=== PATIENT | female | born 1940 | race Hispanic/Latino ===

== ENCOUNTER → 2018-08-08 | Outpatient (CLI) | payer OTHER, MEDICARE | END | disposition home or self-care (01) | LOC: SHCH 13:37 | PROVIDERS: ATTEND Internal Medicine Cardiovascular Disease | DX: I48.0 Paroxysmal atrial fibrillation (principal) | CPT/HCPCS: 93306 ==

== ENCOUNTER 2019-07-03 05:53 | Emergency (ER) | payer OTHER, MEDICARE ==
[2019-07-03 06:23] LABS: BASOPHILS % (AUTO) 0.4 % (0.0-5.0); EOSINOPHILS % (AUTO) 1.5 % (0.0-8.0); HEMATOCRIT 39.8 % (36-48); MEAN CORPUSCULAR HEMOGLOBIN 29.3 pg (27.0-33.0); MEAN CORPUSCULAR HGB CONC 32.7 g/dL (32.0-36.0); MEAN CORPUSCULAR VOLUME 89.8 fL (79-99); MONOCYTES % (AUTO) 7.2 % (3.0-13.0); NEUTROPHILS % (AUTO) 67.1 % (40.0-77.0); PLATELET COUNT (AUTO) 594 K/uL (130-400); RED BLOOD CELL COUNT(AUTO) 4.43 MIL/uL (4.00-5.50); RED CELL DISTRIBUTION WIDTH 12.6 % (11.0-15.5); WHITE BLOOD COUNT (AUTO) 11.5 K/uL (4.8-10.8)
[2019-07-03 06:23] LABS: APPEARANCE,URINE CLEAR (CLEAR); BILIRUBIN,URINE SMALL (NEGATIVE); COLOR,URINE YELLOW (YELLOW); GLUCOSE, URINE (UA) NEGATIVE (NEGATIVE); KETONES,URINE NEGATIVE (NEGATIVE); LEUKOCYTE ESTERASE ,URINE MODERATE (NEGATIVE); NITRATE,URINE NEGATIVE (NEGATIVE); OCCULT BLOOD,URINE MODERATE (NEGATIVE); PROTEIN,URINE TRACE mg/dL (NEGATIVE); UROBILINOGEN,URINE 0.2 mg/dL (0.2-1.0)
[2019-07-03 06:36] LABS: INR 0.92 (0.85-1.15); PARTIAL THROMBOPLASTIN TIME 25.8 SEC (26.3-35.5)
[2019-07-03 06:39] LABS: POTASSIUM 3.7 mmol/L (3.5-5.1)
[2019-07-03 06:45] LABS: ALBUMIN 3.2 g/dL (3.5-5.0); BILIRUBIN,TOTAL 0.4 mg/dL (0.2-1.0); TOTAL PROTEIN, SERUM 8.2 g/dL (6.0-8.3)
[2019-07-03] MEDS ORDERED: CEFTRIAXONE SODIUM 1 GM ONE (06:54)
[2019-07-03] MEDS ORDERED: SODIUM CHLORIDE 0.9% 1000ML 1,000 ML IV ONE (06:54)
[2019-07-03] MEDS ORDERED: PHENAZOPYRIDINE HCL 200 MG TABLET ONE (06:54)
[2019-07-03 06:59] LABS: RBC,URINE 0-1 /HPF (0-1)
[2019-07-03 07:00] LABS: BACTERIA,URINE Moderate /HPF (None Seen)
[2019-07-03 07:01] LABS: MUCUS,URINE Few LPF (None Seen); SQUAMOUS EPITHELIAL CELL,UR Few /HPF (0-2)
== END 2019-07-03 07:53 | disposition home or self-care (01) ==
LOC: EDH 05:53
DX: N39.0 Urinary tract infection, site not specified (principal); I10 Essential (primary) hypertension; E78.00 Pure hypercholesterolemia, unspecified; R79.1 Abnormal coagulation profile; Z90.49 Acquired absence of other specified parts of digestive tract; Z79.899 Other long term (current) drug therapy
CPT/HCPCS: 36415; 80053; 81001; 85025; 85610; 85730; 87077; 87088; 87186; 96374; 99283; J0696; J7030

== ENCOUNTER → 2020-07-21 | Outpatient (CLI) | payer OTHER, MEDICARE | END | disposition home or self-care (01) | LOC: SHCH 14:21 | PROVIDERS: ATTEND Internal Medicine Cardiovascular Disease | DX: I34.0 Nonrheumatic mitral (valve) insufficiency (principal); R55 Syncope and collapse | CPT/HCPCS: 93306; 93356 ==

== ENCOUNTER 2021-10-19 05:58 | Observation (INO) | payer OTHER, MEDICARE ==
[2021-10-16 09:20] LABS: BASOPHILS % (AUTO) 0.8 % (0.0-5.0); HEMATOCRIT 43.3 % (36-48); LYMPHOCYTES % (AUTO) 22.5 % (21.0-51.0); MEAN CORPUSCULAR HEMOGLOBIN 29.5 pg (27.0-33.0); MEAN CORPUSCULAR HGB CONC 32.1 g/dL (32.0-36.0); MEAN CORPUSCULAR VOLUME 91.9 fL (79-99); NEUTROPHILS % (AUTO) 67.4 % (40.0-77.0); PLATELET COUNT (AUTO) 330 K/uL (130-400); RED BLOOD CELL COUNT(AUTO) 4.71 MIL/uL (4.00-5.50); WHITE BLOOD COUNT (AUTO) 9.3 K/uL (4.8-10.8)
[2021-10-16 09:30] LABS: POTASSIUM 4.5 mmol/L (3.5-5.1)
[2021-10-16 09:32] LABS: INR 0.93 (0.85-1.15); PROTHROMBIN TIME 9.8 SEC (9.6-11.6)
[2021-10-16 09:44] VITALS: BP 168/68
[2021-10-16 10:26] LABS: APPEARANCE,URINE CLEAR (CLEAR); BILIRUBIN,URINE NEGATIVE (NEGATIVE); COLOR,URINE YELLOW (YELLOW); GLUCOSE, URINE (UA) NEGATIVE (NEGATIVE); KETONES,URINE NEGATIVE (NEGATIVE); LEUKOCYTE ESTERASE ,URINE MODERATE (NEGATIVE); NITRATE,URINE NEGATIVE (NEGATIVE); OCCULT BLOOD,URINE NEGATIVE (NEGATIVE); PROTEIN,URINE NEGATIVE (NEGATIVE); UROBILINOGEN,URINE 0.2 mg/dL (0.2-1.0)
[2021-10-16 10:46] LABS: BACTERIA,URINE Few /HPF (None Seen); SQUAMOUS EPITHELIAL CELL,UR Rare /HPF (0-2); WBC,URINE None Seen /HPF (0-1)
[2021-10-19] VITALS (23 sets, daily range): BP systolic 128–187; BP diastolic 50–91
[~2021-10-19] VITALS: Ht 162.6 cm; Wt 74.5 kg
[2021-10-19] MEDS: CEFAZOLIN SODIUM 2 GM VIAL IV SCH (05:00)
[~2021-10-19 05:58] MED LIST: ALEN70TA80 PO; AMLO-257 PO; ATOR20TA65 PO; CEFAZOLIN SODIUM 2 GM VIAL IV ONE; METO-408 PO; RIVA20TA PO; TRANEXAMIC ACID 1000MG/10ML IV ONE; TYLENOL ARTHRITIS PO
[2021-10-19] MEDS ORDERED: LACTATED RINGERS 1000ML 1,000 ML IV ONE (07:55)
[2021-10-19] MEDS ORDERED: CEFAZOLIN SODIUM 1 GM VIAL ONE ×2 (07:55→10:53)
[2021-10-19] MEDS ORDERED: 0.9%NACL 1000ML 0 ML IV ONE (07:55)
[2021-10-19] MEDS ORDERED: MIDAZOLAM HCL 1 MG/ML 2ML VIAL ONE ×2 (10:14→10:20)
[2021-10-19] MEDS ORDERED: LIDOCAINE PF 100MG/5ML (2%) SYRINGE 5ML ONE (10:19)
[2021-10-19] MEDS ORDERED: ROCURONIUM 10MG/1ML SYR 10 MG/ML ML ONE ×2 (10:20→11:10)
[2021-10-19] MEDS ORDERED: FENTANYL CITRATE PF 50 MCG/1 ML 2ML VIAL ONE ×2 (10:20→13:11)
[2021-10-19] MEDS ORDERED: PROPOFOL 10 MG/ML 20ML VIAL IV ONE (10:20)
[2021-10-19] MEDS ORDERED: ONDANSETRON 4MG INJ ONE (10:20)
[2021-10-19] MEDS ORDERED: ROPIVACAINE 0.5% 5MG/ML 30ML IJ ONE (10:21)
[2021-10-19] MEDS ORDERED: DEXAMETHASONE SOD PHOSPHATE 10MG/ML 1ML VIAL ONE (10:22)
[2021-10-19] MEDS ORDERED: CEFAZOLIN SODIUM 2 GM VIAL IV ONE (10:30)
[2021-10-19] MEDS ORDERED: PHENYLEPHRINE HCL 10 MG/ML 1ML VIAL IV ONE (10:43)
[2021-10-19] MEDS ORDERED: EPHEDRINE SULFATE 50 MG/ML AMPULE ONE (11:06)
[2021-10-19] MEDS ORDERED: CEFAZOLIN SODIUM 1 GM VIAL IRRIG ONE (11:12)
[2021-10-19] MEDS ORDERED: CALCIUM CARB 500MG PO PRN (13:00)
[2021-10-19] MEDS: ACETAMINOPHEN 500 MG TABLET PO SCH ×2 (13:00→21:05)
[2021-10-19] MEDS ORDERED: LIDOCAINE HCL-MPF 1% 2ML VIAL IV PRN (13:00)
[2021-10-19] MEDS ORDERED: KCL 20 MEQ ERTAB PO PRN (13:00)
[2021-10-19] MEDS ORDERED: OXYCODONE HCL 5 MG TAB PO PRN (13:00)
[2021-10-19] MEDS ORDERED: TRAMADOL HCL 50 MG TABLET PO PRN (13:00)
[2021-10-19] MEDS: 0.9%NACL 1000ML 1,000 ML IV SCH ×2 (13:00→23:00)
[2021-10-19] MEDS ORDERED: DiphenhydrAMINE HCL 50 MG/ML VIAL IVP PRN (13:00)
[2021-10-19] MEDS ORDERED: POTASSIUM CHLORIDE 20MEQ/100ML 100 ML IV PRN (13:00)
[2021-10-19] MEDS ORDERED: ONDANSETRON 4MG INJ IVP PRN (13:00)
[2021-10-19] MEDS ORDERED: FERROUS FUMARATE 324 MG TABLET PO PRN (13:00)
[2021-10-19] MEDS ORDERED: KETOROLAC 15MG/ML VIAL (15MG/ML) IV PRN (13:00)
[2021-10-19] MEDS ORDERED: TRANEXAMIC ACID 1000MG/10ML ONE (13:04)
[2021-10-19] MEDS ORDERED: GLYCOPYRROLATE 1 MG/5 ML SYRINGE ONE (13:10)
[2021-10-19] MEDS ORDERED: NEOSTIGMINE 5MG/5ML SYR IV ONE (13:10)
[2021-10-19] MEDS ORDERED: MORPHINE 2 MG SYG ONE ×3 (13:32→13:47)
[2021-10-19] MEDS: PREGABALIN 25 MG CAP PO SCH (21:03)
[2021-10-19] MEDS: FAMOTIDINE 20MG TAB PO SCH (21:05)
[2021-10-19] MEDS: CELECOXIB 200 MG CAP PO SCH (21:05)
[2021-10-19] MEDS: NITROFURANTOIN MONOHYD/M-CRYST 100 MG CAPSULE PO SCH (21:06)
[2021-10-19] MEDS: PHENAZOPYRIDINE HCL 200 MG TABLET PO SCH (21:07)
[2021-10-19] MEDS: METOPROLOL SUCCINATE 25 MG TAB.SR.24H PO SCH (21:08)
[2021-10-19] MEDS: CEFAZOLIN SODIUM 1 GM VIAL IVP SCH (21:08)
[2021-10-20 00:23] VITALS: BP 151/72
[2021-10-20] MEDS: 0.9%NACL 1000ML 1,000 ML IV SCH (02:09)
[2021-10-20] MEDS: PHENAZOPYRIDINE HCL 200 MG TABLET PO SCH ×3 (02:30→17:47)
[2021-10-20] MEDS: CEFAZOLIN SODIUM 1 GM VIAL IVP SCH (02:37)
[2021-10-20] MEDS: CEFAZOLIN SODIUM 2 GM VIAL IV SCH (04:02)
[2021-10-20] MEDS: ACETAMINOPHEN 500 MG TABLET PO SCH ×3 (04:22→23:21)
[2021-10-20 04:23] VITALS: BP 137/60
[2021-10-20] MEDS: OXYCODONE HCL 5 MG TAB PO PRN ×3 (04:27→14:06)
[2021-10-20 05:16] LABS: HEMATOCRIT 31.7 % (36-48); MEAN CORPUSCULAR HEMOGLOBIN 29.9 pg (27.0-33.0); MEAN CORPUSCULAR HGB CONC 33.8 g/dL (32.0-36.0); MEAN CORPUSCULAR VOLUME 88.5 fL (79-99); RED BLOOD CELL COUNT(AUTO) 3.58 MIL/uL (4.00-5.50); RED CELL DISTRIBUTION WIDTH 12.7 % (11.0-15.5); WHITE BLOOD COUNT (AUTO) 13.3 K/uL (4.8-10.8)
[2021-10-20 05:28] LABS: CREATININE 0.7 mg/dL (0.5-1.5); POTASSIUM 3.7 mmol/L (3.5-5.1)
[2021-10-20 08:00] VITALS: BP 131/53
[2021-10-20] MEDS: AMLODIPINE 5 MG TAB PO SCH (09:00)
[2021-10-20] MEDS ORDERED: RIVAROXABAN 20 MG TABLET PO SCH (09:00)
[2021-10-20] MEDS: METOPROLOL SUCCINATE 25 MG TAB.SR.24H PO SCH ×2 (09:00→23:20)
[2021-10-20] MEDS: PREGABALIN 25 MG CAP PO SCH ×2 (10:55→23:20)
[2021-10-20] MEDS: FAMOTIDINE 20MG TAB PO SCH ×2 (10:55→23:28)
[2021-10-20] MEDS: POLYETHYLENE GLYCOL 3350 17 GM POWD.PACK PO SCH (10:55)
[2021-10-20] MEDS: CELECOXIB 200 MG CAP PO SCH ×2 (10:55→23:20)
[2021-10-20] MEDS: RIVAROXABAN 20 MG TABLET PO SCH (10:55)
[2021-10-20] MEDS: ATORVASTATIN 20 MG TABLET PO SCH (10:55)
[2021-10-20] MEDS: NITROFURANTOIN MONOHYD/M-CRYST 100 MG CAPSULE PO SCH ×2 (10:56→23:19)
[2021-10-20 12:00] VITALS: BP 119/50
[2021-10-20 16:00] VITALS: BP 116/49
[2021-10-20 20:40] VITALS: BP 129/53
[2021-10-21 01:03] VITALS: BP 117/50
[2021-10-21] MEDS: PHENAZOPYRIDINE HCL 200 MG TABLET PO SCH ×3 (03:08→17:29)
[2021-10-21 04:24] VITALS: BP 127/66
[2021-10-21] MEDS: CEFAZOLIN SODIUM 2 GM VIAL IV SCH (05:00)
[2021-10-21] MEDS: ACETAMINOPHEN 500 MG TABLET PO SCH ×2 (06:43→13:14)
[2021-10-21 08:00] VITALS: BP 115/48
[2021-10-21] MEDS: AMLODIPINE 5 MG TAB PO SCH ×2 (09:00→09:06)
[2021-10-21] MEDS: METOPROLOL SUCCINATE 25 MG TAB.SR.24H PO SCH ×2 (09:00→09:06)
[2021-10-21] MEDS: PREGABALIN 25 MG CAP PO SCH (09:06)
[2021-10-21] MEDS: RIVAROXABAN 20 MG TABLET PO SCH (09:06)
[2021-10-21] MEDS: POLYETHYLENE GLYCOL 3350 17 GM POWD.PACK PO SCH (09:06)
[2021-10-21] MEDS: FAMOTIDINE 20MG TAB PO SCH (09:06)
[2021-10-21] MEDS: NITROFURANTOIN MONOHYD/M-CRYST 100 MG CAPSULE PO SCH (09:06)
[2021-10-21] MEDS: CELECOXIB 200 MG CAP PO SCH (09:06)
[2021-10-21] MEDS: ATORVASTATIN 20 MG TABLET PO SCH (09:06)
[2021-10-21] MEDS ORDERED: BISACODYL 10 MG SUPP.RECT RC ONE (10:24)
[2021-10-21 12:00] VITALS: BP 126/59
[2021-10-21] MEDS: POTASSIUM CHLORIDE 10% ELIXIR 20 MEQ/15 ML UDCUP PO PRN ×2 (14:53→17:30)
[2021-10-21 16:30] VITALS: BP 132/52
[2021-10-21] MEDS ORDERED: HYDR-4060 PO (18:22)
[2021-10-21] MEDS ORDERED: NITR100C4 PO (18:22)
[2021-10-22] MEDS ORDERED: BISACODYL 10 MG SUPP.RECT RC PRN (13:00)
[2021-10-26] MEDS ORDERED: ALENDRONATE SODIUM 35 MG TAB PO SCH (09:00)
== END 2021-10-21 22:09 | disposition home health service (06) ==
LOC: DAH 05:58 → DAHIP 05:59 → DAH 05:59 → 4BH 14:20
PROVIDERS: ADMIT Orthopaedic Surgery; ATTEND Orthopaedic Surgery
DX: M17.11 Unilateral primary osteoarthritis, right knee (principal); Z20.822 Contact with and (suspected) exposure to COVID-19; G89.29 Other chronic pain; M25.561 Pain in right knee; M17.12 Unilateral primary osteoarthritis, left knee; I10 Essential (primary) hypertension; I48.0 Paroxysmal atrial fibrillation; N39.0 Urinary tract infection, site not specified; B96.20 Unspecified Escherichia coli [E. coli] as the cause of diseases classified elsewhere; E78.5 Hyperlipidemia, unspecified; Z79.01 Long term (current) use of anticoagulants; Z86.73 Personal history of transient ischemic attack (TIA), and cerebral infarction without residual deficits; Z88.6 Allergy status to analgesic agent; Z98.51 Tubal ligation status
CPT/HCPCS: 27447; 36415 ×2; 64447; 76942; 80048 ×2; 81001; 85025; 85027; 85610; 87077; 87088; 87186; 87635; 87641; 96374; 96376; 97039 ×4; 97116 ×4; 97161; 97530 ×2; A4215; A4221; A4222; A4223; A4649 ×5; A4663; A5120; A9272; C1776; C9803; G0378 ×54; J0690 ×6; J1100; J2001; J2250; J2370; J2405; J2704; J2710; J2795; J3010 ×2; J3490 ×2; J7030 ×4; J7120 ×2

== ENCOUNTER → 2022-10-28 | Outpatient (CLI) | payer OTHER, MEDICARE ==
[~2022-10-28] MED LIST changes: -CEFAZOLIN SODIUM 2 GM VIAL IV ONE; +HYDR-4060 PO; +NITR100C4 PO; -TRANEXAMIC ACID 1000MG/10ML IV ONE
== END | disposition home or self-care (01) ==
LOC: RAH 14:44
PROVIDERS: ATTEND Family Medicine
DX: G31.9 Degenerative disease of nervous system, unspecified (principal); G44.309 Post-traumatic headache, unspecified, not intractable
CPT/HCPCS: 70450

== ENCOUNTER → 2023-08-30 | Outpatient (CLI) | payer OTHER, MEDICARE | END | disposition home or self-care (01) | LOC: RAH 13:22 | PROVIDERS: ATTEND Internal Medicine | DX: Z51.11 Encounter for antineoplastic chemotherapy (principal) | CPT/HCPCS: 93306; 93356 ==

== ENCOUNTER 2023-11-07 16:15 | Emergency (ER) | payer OTHER, MEDICARE ==
[~2023-11-07] VITALS: Ht 162.6 cm; Wt 70.8 kg
[2023-11-07] MEDS ORDERED: 0.9%NACL 1000ML 1,000 ML IV ONE (17:30)
[2023-11-07 18:14] LABS: APPEARANCE,URINE CLEAR (CLEAR); BILIRUBIN,URINE NEGATIVE (NEGATIVE); COLOR,URINE DARK-YELLOW (YELLOW); GLUCOSE, URINE (UA) NEGATIVE (NEGATIVE); KETONES,URINE NEGATIVE (NEGATIVE); LEUKOCYTE ESTERASE ,URINE 500 Leu/uL (NEGATIVE); NITRATE,URINE 1+ (NEGATIVE); OCCULT BLOOD,URINE NEGATIVE (NEGATIVE); PH,URINE 5.5 (5.0-8.0); PROTEIN,URINE NEGATIVE (NEGATIVE); UROBILINOGEN,URINE 0.2 mg/dL (0.2-1.0)
[2023-11-07 18:18] LABS: ADD UA MICROSCOPIC YES
[2023-11-07 18:20] LABS: BACTERIA,URINE RARE /HPF (None Seen); MUCUS,URINE RARE LPF (None Seen); WBC,URINE 26-50 /HPF (0-1)
[2023-11-07 18:30] LABS: BASOPHILS # (AUTO) 0.03 K/uL (0.00-0.20); BASOPHILS % (AUTO) 0.3 % (0.0-5.0); EOSINOPHILS # (AUTO) 0.06 K/uL (0.00-0.70); EOSINOPHILS % (AUTO) 0.6 % (0.0-8.0); HEMATOCRIT 32.3 % (36-48); IMMATURE GRANULOCYTE ABSOLUTE 0.08 K/uL (0-1); LYMPHOCYTES % (AUTO) 19.8 % (21.0-51.0); MEAN CORPUSCULAR HEMOGLOBIN 30.9 pg (27.0-33.0); MEAN CORPUSCULAR HGB CONC 32.8 g/dL (32.0-36.0); MEAN CORPUSCULAR VOLUME 94.2 fL (79-99); MONOCYTES # (AUTO) 0.6 K/uL (0.1-1.0); MONOCYTES % (AUTO) 5.3 % (3.0-13.0); NEUTROPHILS # (AUTO) 7.5 K/uL (1.8-7.7); NEUTROPHILS % (AUTO) 73.2 % (40.0-77.0); PLATELET COUNT (AUTO) 215 K/uL (130-400); RED BLOOD CELL COUNT(AUTO) 3.43 MIL/uL (4.00-5.50); RED CELL DISTRIBUTION WIDTH 14.4 % (11.0-15.5); WHITE BLOOD COUNT (AUTO) 10.3 K/uL (4.8-10.8)
[2023-11-07 18:33] LABS: CREATININE 0.7 mg/dL (0.5-1.0); POTASSIUM 3.3 mmol/L (3.5-5.1)
[2023-11-07 18:38] LABS: ALBUMIN 3.6 g/dL (3.5-5.0); BILIRUBIN,TOTAL 0.4 mg/dL (0.2-1.0)
[2023-11-07] MEDS ORDERED: POTASSIUM CHLORIDE 10MEQ SR TAB PO ONE (19:00)
[2023-11-07 20:06] VITALS: BP 159/62; PULSE 94; RESP 16; O2SAT 99
[2023-11-07] MEDS: ACETAMINOPHEN 325 MG TAB PO ONE (20:17)
== END 2023-11-07 20:23 | disposition home or self-care (01) ==
LOC: EDH 16:15
DX: N39.0 Urinary tract infection, site not specified (principal); D64.9 Anemia, unspecified; E87.6 Hypokalemia; E87.1 Hypo-osmolality and hyponatremia; I10 Essential (primary) hypertension; Z85.3 Personal history of malignant neoplasm of breast; Z88.6 Allergy status to analgesic agent; Z79.899 Other long term (current) drug therapy; Z86.73 Personal history of transient ischemic attack (TIA), and cerebral infarction without residual deficits
CPT/HCPCS: 36415; 80053; 81001; 82550; 83605; 84484; 85025; 87086; 93005

== ENCOUNTER → 2024-06-26 | Outpatient (CLI) | payer OTHER, MEDICARE ==
--- NOTE | 2024-06-26 21:23 | HMCSR ---
APPROVED REPORT EXAM: Two-dimensional and M-mode echocardiogram with Doppler and color Doppler. INDICATION ICD: C50.411, Z51.11 2D Dimensions RVDd3.1 cmLVEF(%)63.5 (>50%)LVEF(%, simp.)65 % IVSd0.6 (0.7-1.1cm)FS(%)35 %LA ESV INDEX (BP)22.48 mL/m2 LVDd4.8 (3.8-5.6cm)LA (2D)3.8 (1.6-4.0cm) PWd0.8 (0.7-1.1cm)Ao Root(2D)3.2 (2.0-3.7cm) IVSs0.9 cmLVOT diam2.0 (1.8-2.4cm) LVDs3.2 (2.5-4.0cm)IVC diam1.7 cm PWs0.8 cm Deformation Strain Apical 4-20.0 % Apical 2-20.0 % Apical 3-22.0 % Global Strain-21.0 % M-Mode Dimensions EPSS0.4 cm LA (MM)3.9 (1.6-4.0cm) Ao Root(MM)2.7 (2.0-3.7cm) Mitral Valve MV E Vmax87.2 cm/sDECEL Hiae167 ms MV A Vmax83.9 cm/sP 1/2 T54 ms E/A ratio1.0MVA (PHT)4.1 cm2 TDI E/E' Medial9.7E/E' Lateral7.9 Medial E' Peak V9.00 cm/sLateral E' Peak V11.00 cm/s Pulmonary Valve PV Vmax0.8 m/s Tricuspid Valve TR Vmax2.7 m/sRAP (EST) 3 ffGpAZPJ18.0 mmHg TR Peak GR30.0 mmHg Left Ventricle The left ventricle is normal size. GLS -21.0%. There is normal LV segmental wall motion. There is nor mal left ventricular wall thickness. LVEF is 60-65%. The left ventricular diastolic function is thiago l. Right Ventricle The right ventricle is normal size. The right ventricular systolic function is normal. Atria The left atrium size is normal. The right atrium size is normal. Aortic Valve The aortic valve is trileaflet normal in structure and opens well. No aortic regurgitation is present by color doppler. There is no aortic valvular stenosis. AoV area by planimetry 1.9cm. Mitral Valve Mitral valve leaflets appear normal. Mitral valve leaflets open well. Mild posterior annular calcific ation noted. There is no mitral valve regurgitation noted. There is no mitral valve stenosis. Tricuspid Valve The tricuspid valve is normal in structure. There is trace of tricuspid valve regurgitation noted. Pulmonic Valve The pulmonary valve is normal in structure. There is trace of pulmonic valvular regurgitation. Great Vessels The aortic root is normal in size. The IVC is normal in size and collapses >50% with inspiration. Pericardium There is no pericardial effusion. Other Information Quality : Adequate Conclusion LVEF is 60-65%.
== END | disposition home or self-care (01) ==
LOC: RAH 13:56
PROVIDERS: ATTEND Internal Medicine
DX: Z51.11 Encounter for antineoplastic chemotherapy (principal); C50.411 Malignant neoplasm of upper-outer quadrant of right female breast; I34.0 Nonrheumatic mitral (valve) insufficiency
CPT/HCPCS: 93306; 93356